=== PATIENT | female | born 1960 | race American Indian/Alaskan Native ===

== ENCOUNTER 2020-07-18 11:45 | Emergency (ER) | payer OTHER ==
[2020-07-18 12:51] VITALS: BP 173/93
--- NOTE | 2020-07-18 13:33 | Emergency Department Report ---
ED Extremity Problem HPI - General Chief complaint: Extremity Problem,Nontraumatic Stated complaint: LT LEG/ABDOMINAL PAIN Time Seen by Provider: 07/18/20 12:47 Source: patient Mode of arrival: Ambulatory Limitations: No Limitations - History of Present Illness Initial comments: 59-year-old female with a past medical history of hyperlipidemia and hypert ension presents to the ER today with complaints of numbness in her right lower extremity. She states that her symptoms started about a week ago and she feels like is getting worse. She states that her symptoms started initially in her right foot but has migrated up into her right buttocks and she feels like it is also in abdomen. She reports intermittent tingling to her right foot. She denies any leg weakness. She denies any abdominal pain. She denies any associated back pain. She denies any bowel or bladder incontinence, urinary retention or constipation. She denies any apparent leg swelling, bruising or erythema. She states that the numbness seems to be worse when she is at rest. She states that she mention it to her primary care doctor who told her it could be related to "her circulation" and recommended that she walks around more frequently but she states that does not seem to be going away.. She denies any history of PVD or DVT or PE or diabetes, lumbar thoracic spinal issues, or any other significant past history. MD Complaint: other (Numbness right lower extremity) -: week(s) (1) - Related Data Home Medications Medication Instructions Recorded Confirmed Last Taken Amlodipine Besylate/Valsartan 07/18/20 Unknown [Amlodipine-Valsartan 10-320 mg] AtorvaSTATin [Lipitor] 40 mg PO QHS 07/18/20 Unknown labetaloL [Labetalol 200mg TAB] 200 mg PO BID 07/18/20 07/18/20 Unknown Previous Rx's Medication Instructions Recorded Last Taken Type amLODIPine 10 mg PO DAILY #30 tablet 10/06/14 Unknown Rx Gabapentin 100 mg PO Q12HR #20 capsule 07/18/20 Unknown Rx Allergies Allergy/AdvReac Type Severity Reaction Status Date / Time No Known Allergies Allergy Unverified 10/04/14 00:39 ED Review of Systems ROS: Stated complaint: LT LEG/ABDOMINAL PAIN Other details as noted in HPI Comment: All other systems reviewed and negative Constitutional: denies: chills, fever Eyes: denies: eye pain, eye discharge, vision change ENT: denies: ear pain, throat pain Respiratory: denies: cough, shortness of breath, SOB with exertion, SOB at rest, wheezing Cardiovascular: denies: chest pain, palpitations, dyspnea on exertion, edema, syncope, paroxysmal nocturnal dyspnea Gastrointestinal: denies: abdominal pain, nausea, vomiting, diarrhea, constipation, hematemesis, melena, hematochezia Genitourinary: denies: urgency, dysuria, frequency, hematuria, discharge, abnormal menses, dyspareunia Musculoskeletal: denies: back pain, joint swelling, arthralgia Skin: denies: rash, lesions Neurological: numbness, paresthesias. denies: headache, weakness, abnormal gait Psychiatric: denies: anxiety, depression, auditory hallucinations, visual hallucinations, homicidal thoughts, suicidal thoughts Hematological/Lymphatic: denies: easy bleeding, easy bruising, swollen glands ED Past Medical Hx - Past Medical History Previous Medical History?: Yes Hx Hypertension: Yes Additional medical history: High cholesterol - Social History Smoking Status: Current Every Day Smoker - Medications Home Medications: Home Medications Medication Instructions Recorded Confirmed Last Taken Type amLODIPine 10 mg PO DAILY #30 tablet 10/06/14 Unknown Rx Amlodipine Besylate/Valsartan 07/18/20 Unknown History [Amlodipine-Valsartan 10-320 mg] AtorvaSTATin [Lipitor] 40 mg PO QHS 07/18/20 Unknown History Gabapentin 100 mg PO Q12HR #20 capsule 07/18/20 Unknown Rx labetaloL [Labetalol 200mg TAB] 200 mg PO BID 07/18/20 07/18/20 Unknown History ED Physical Exam - General Limitations: No Limitations General appearance: alert, in no apparent distress - Head Head exam: Present: atraumatic, normocephalic, normal inspection - Eye Eye exam: Present: normal appearance, PERRL, EOMI Pupils: Present: normal accommodation - ENT ENT exam: Present: normal exam, mucous membranes moist, TM's normal bilaterally - Neck Neck exam: Present: normal inspection, full ROM - Respiratory Respiratory exam: Present: normal lung sounds bilaterally. Absent: respiratory distress - Cardiovascular Cardiovascular Exam: Present: regular rate, normal rhythm, normal heart sounds - GI/Abdominal GI/Abdominal exam: Present: soft. Absent: distended, tenderness, guarding, rebo und - Extremities Exam Extremities exam: Present: normal inspection, full ROM, normal capillary refill. Absent: tenderness, pedal edema, joint swelling, calf tenderness - Back Exam Back exam: Present: normal inspection, full ROM. Absent: paraspinal tenderness, vertebral tenderness - Neurological Exam Neurological exam: Present: alert, oriented X3, CN II-XII intact, normal gait, reflexes normal. Absent: motor sensory deficit - Psychiatric Psychiatric exam: Present: normal affect, normal mood - Skin Skin exam: Present: intact ED Course Vital Signs 07/18/20 12:25 Temperature 98.9 F Pulse Rate 71 Respiratory 18 Rate Blood Pressure 173/93 O2 Sat by Pulse 98 Oximetry ED Medical Decision Making - Lab Data Result diagrams: 07/18/20 13:25 07/18/20 13:25 - Medical Decision Making 59-year-old female with a past medical history of hyperlipidemia and hypertension presents to the ER today with complaints of numbness in her right lower extremity. She states that her symptoms started about a week ago and she feels like is getting worse. She states that her symptoms started initially in her right foot but has migrated up into her right buttocks and she feels like it is also in abdomen. She reports intermittent tingling to her right foot. She denies any leg weakness. She denies any abdominal pain. She denies any associated back pain. She denies any bowel or bladder incontinence, urinary retention or constipation. She denies any apparent leg swelling, bruising or erythema. She states that the numbness seems to be worse when she is at rest. She states that she mention it to her primary care doctor who told her it could be related to "her circulation" and recommended that she walks around more frequently but she states that does not seem to be going away.. She denies any history of PVD or DVT or PE or diabetes, lumbar thoracic spinal issues, or any other significant past history. Labs reviewed. Patient LFTs are mildly elevated but she admits that she has a history of elevated LFTs. She currently has no complaints abdominal pain or any other GI complaints and she has a soft nontender abdomen. The remainder of her labs are unremarkable. Physical exam shows well-appearing female who is not in any acute distress. She is not toxic. She appears well-hydrated. She has a normal neurological exam with no deficits. She has a normal gait in the ED. Based on her history, physical exam, and current condition there is no concern for DVT, acute arterial occlusion, spinal cord compression, infection or any other significant emergent issues requiring further testing or imaging, admission or consults at this time. Informed patient that her symptoms could be related to herniated disc in her back, but also recommend that if her primary care doctor is concerned for her arterial circulation, recommend that she follows up with her PCP for arterial studies and also for referral to Ortho for an MRI of her back. Patient expressed understanding of instructions. Patient was stable at time of discharge. Critical care attestation.: If time is entered above; I have spent that time in minutes in the direct care of this critically ill patient, excluding procedure time. ED Disposition Clinical Impression: Paresthesia and pain of right extremity Disposition: DC- TO HOME OR SELFCARE Is pt being admited?: No Does the pt Need Aspirin: No Condition: Stable Instructions: Paresthesia, [id number] Additional Instructions: Take the gabapentin as prescribed. I recommend continued follow-up with your primary care doctor especially if your symptoms continues. You may need an MRI of your lower back to rule out disc herniation as a cause of your paresthesias to your leg, and you can also follow-up with her for arterial vascular studies, and also follow-up with her for continued follow-up on your liver functions. Return to the ER if your symptoms worsens in any way. Prescriptions: Gabapentin 100 mg PO Q12HR #20 capsule Referrals: THELMA DENISE DO [Primary Care Provider] - 3-5 Days Time of Disposition: 15:25
[2020-07-18 14:19] LABS: Basophils % (Auto) 0.8 % (0.0-1.8); Eosinophils % (Auto) 0.6 % (0.0-4.3); Hematocrit 36.1 % (30.3-42.9); Hemoglobin 11.9 gm/dl (10.1-14.3); Lymphocytes # (Auto) 1.8 K/mm3 (1.2-5.4); Mean Corpuscular HGB Conc 33 % (30-34); Mean Corpuscular Volume 104 fl (79-97); Monocytes # (Auto) 0.5 K/mm3 (0.0-0.8); Platelet Count 239 K/mm3 (140-440); Red Blood Count 3.49 M/mm3 (3.65-5.03); Red Cell Distribution Width 14.9 % (13.2-15.2)
[2020-07-18 14:30] LABS: Alanine Aminotransferase 98 units/L (7-56); Albumin 4.4 g/dL (3.9-5); Blood Urea Nitrogen 4 mg/dL (7-17); Calcium 9.2 mg/dL (8.4-10.2); Hemolysis Index 10
[2020-07-18 14:31] LABS: BUN/Creatinine Ratio 6
== END 2020-07-18 15:53 | disposition home or self-care (01) ==
LOC: ED 11:45
DX: R20.2 Paresthesia of skin (principal); M79.604 Pain in right leg; I10 Essential (primary) hypertension; F17.200 Nicotine dependence, unspecified, uncomplicated; Z79.899 Other long term (current) drug therapy
CPT/HCPCS: 36415; 80053; 83735; 85025

== ENCOUNTER 2021-01-21 10:04 | Outpatient (CLI) | payer OTHER ==
[2021-01-21 11:08] LABS: Blood Urea Nitrogen 9 mg/dL (7-17)
--- NOTE | 2021-01-21 13:59 | Cat Scan Report ---
CTA abdomen and pelvis with contrast INDICATION : VAS DISEASE 100 ml omni 350. Acute bilateral leg pain TECHNIQUE: Axial imaging performed through the abdomen and pelvis, with contrast bolus timing set to maximize opacification of the aorta. Bilateral lower extremity runoff was also performed. 3-plane M IP reformatted images were obtained. All CT scans at this location are performed using CT dose reduc tion for ALARA by means of automated exposure control. 100 mL of intravenous contrast administered. COMPARISON: None FINDINGS: Angiographic findings: There is multifocal atherosclerotic disease throughout the abdominal aorta and branch vessels which is generally mild except for the renal arteries which is more moderately advanc ed. There is 25-50% stenosis in the proximal segment of the right renal artery supplying the upper po le in this patient with at least 2 right renal arteries. At least 25-50% stenosis is also seen just b eyond the origin of the left renal artery as well. Moderate multifocal atherosclerotic disease extends into the common and external iliac arteries, with more severe disease involving bilateral internal iliac arteries. On the right, there is at least 50- 75 % focal stenosis at the junction of the common and external iliac artery segments with at least 75 % or greater stenosis in the proximal right external iliac artery. On the left, there is at least 50% stenosis in the proximal external iliac artery. Moderate to advanced multifocal atherosclerotic disease is present throughout the right lower extremi ty with up to roughly 50% stenosis in the MANAGER PE and at least 50% stenosis in the proximal SFA near the profunda origin. Severe disease is seen in the mid to distal segments where there is at least 50% or greater stenosis especially distally where there is greater than 75% stenosis near the level of the a bductor hiatus. The popliteal artery is patent and relatively unremarkable in appearance. Moderate mu ltifocal disease is seen in the trifurcate arteries with a 2 vessel runoff via the anterior and peron eal arteries. The posterior tibial artery is occluded shortly beyond its origin. Similarly, moderate to advanced multifocal atherosclerotic disease is present throughout the left low er extremity with at least 50-75% stenosis in the MANAGER PE followed by occlusion of the majority of the SF A to the level of the distal segment where blood flow is reconstituted via tiny collaterals arising f rom the profunda. Moderate multifocal disease extends into the cranial aspect of the popliteal artery . The popliteal is otherwise widely patent. The trifurcate arteries demonstrate advanced multifocal a therosclerotic disease and stenoses with a 2 vessel runoff via the anterior and peroneal arteries. Th e posterior tibial artery is occluded at its origin. Non-angiographic findings: Lungs/bones: Lung bases are clear. There are degenerative changes throughout the spine, pelvis, and both lower extremities with no acute osseous abnormality identified. Abdomen/pelvis: There is severe hepatic steatosis. The gallbladder, spleen, pancreas, adrenals, kidn eys, and proximal GI tract appear unremarkable. Urinary bladder and reproductive organs are unremarkable with no pelvic free fluid. No acute colonic abnormality identified. No significant incidental soft tissue findings in either lower extremity. IMPRESSION: 1. Advanced multifocal atherosclerotic disease and multifocal stenoses/levels of occlusion as outlin ed above. Notably, the majority of the left SFA is occluded and there are bilateral 2 vessel runoffs with occlusion of both posterior tibial arteries. 2. Severe hepatic steatosis, otherwise no significant incidental findings. Signer Name: Martin Hinton MD Signed: 01/21/2021 1:55 PM Workstation Name: [email or web address]
== END 2021-01-21 10:05 | disposition home or self-care (01) ==
LOC: CT 10:04
PROVIDERS: ATTEND Internal Medicine
DX: K76.0 Fatty (change of) liver, not elsewhere classified (principal); I73.9 Peripheral vascular disease, unspecified; I70.0 Atherosclerosis of aorta; I70.1 Atherosclerosis of renal artery; I70.202 Unspecified atherosclerosis of native arteries of extremities, left leg
CPT/HCPCS: 36415; 75635; 82565; 84520; Q9967

== ENCOUNTER 2021-02-18 16:57 | Emergency (ER) | payer OTHER ==
--- NOTE | 2021-02-18 17:48 | Emergency Department Report ---
ED General Adult HPI - General Chief complaint: Medical Clearance Stated complaint: hYPOTENSION Time Seen by Provider: 02/18/21 17:14 Source: patient Mode of arrival: Stretcher Limitations: No Limitations - History of Present Illness Initial comments: The patient presents to the emergency department chief complaint of hypotension. Patient states she was at her doctor's office who is Dr. Jo. Patient states while at the office she was mildly lightheaded and when he took her blood pressure it was low. Per EMS her blood pressure was 84/60. On my examination the patient's blood pressure is 106/63. Patient has not received any fluids. Patient denies any chest pain, shortness breath, abdominal pain, headache, lightheadedness. -: Sudden Severity scale (0 -10): 0 Consistency: now resolved Improves with: none Worsens with: none Associated Symptoms: denies other symptoms Treatments Prior to Arrival: none - Related Data Home Medications Medication Instructions Recorded Confirmed Last Taken Amlodipine Besylate/Valsartan 07/18/20 Unknown [Amlodipine-Valsartan 10-320 mg] AtorvaSTATin [Lipitor] 40 mg PO QHS 07/18/20 Unknown labetaloL [Labetalol 200mg TAB] 200 mg PO BID 07/18/20 07/18/20 Unknown Previous Rx's Medication Instructions Recorded Last Taken Type amLODIPine 10 mg PO DAILY #30 tablet 10/06/14 Unknown Rx Gabapentin 100 mg PO Q12HR #20 capsule 07/18/20 Unknown Rx Allergies Allergy/AdvReac Type Severity Reaction Status Date / Time No Known Allergies Allergy Unverified 10/04/14 00:39 ED Review of Systems ROS: Stated complaint: hYPOTENSION Other details as noted in HPI Comment: All other systems reviewed and negative Constitutional: denies: chills, fever Eyes: denies: eye pain, eye discharge, vision change ENT: denies: ear pain, throat pain Respiratory: denies: cough, shortness of breath, wheezing Cardiovascular: denies: chest pain, palpitations Endocrine: no symptoms reported Gastrointestinal: denies: abdominal pain, nausea, diarrhea Genitourinary: denies: urgency, dysuria, discharge Musculoskeletal: denies: back pain, joint swelling, arthralgia Skin: denies: rash, lesions Neurological: denies: headache, weakness, paresthesias Psychiatric: denies: anxiety, depression Hematological/Lymphatic: denies: easy bleeding, easy bruising ED Past Medical Hx - Past Medical History Hx Hypertension: Yes Additional medical history: High cholesterol - Social History Smoking Status: Unknown if ever smoked - Medications Home Medications: Home Medications Medication Instructions Recorded Confirmed Last Taken Type amLODIPine 10 mg PO DAILY #30 tablet 10/06/14 Unknown Rx Amlodipine Besylate/Valsartan 07/18/20 Unknown History [Amlodipine-Valsartan 10-320 mg] AtorvaSTATin [Lipitor] 40 mg PO QHS 07/18/20 Unknown History Gabapentin 100 mg PO Q12HR #20 capsule 07/18/20 Unknown Rx labetaloL [Labetalol 200mg TAB] 200 mg PO BID 07/18/20 07/18/20 Unknown History ED Physical Exam - General Limitations: No Limitations General appearance: alert, in no apparent distress - Head Head exam: Present: atraumatic, normocephalic - Eye Eye exam: Present: normal appearance, PERRL, EOMI - ENT ENT exam: Present: mucous membranes moist - Neck Neck exam: Present: normal inspection - Respiratory Respiratory exam: Present: normal lung sounds bilaterally. Absent: respiratory distress - Cardiovascular Cardiovascular Exam: Present: regular rate, normal rhythm. Absent: systolic murmur, diastolic murmur, rubs, gallop - GI/Abdominal GI/Abdominal exam: Present: soft, normal bowel sounds. Absent: distended, tenderness - Extremities Exam Extremities exam: Present: normal inspection - Back Exam Back exam: Present: normal inspection - Neurological Exam Neurological exam: Present: alert, oriented X3, CN II-XII intact. Absent: motor sensory deficit - Psychiatric Psychiatric exam: Present: normal affect, normal mood - Skin Skin exam: Present: warm, dry, intact, normal color. Absent: rash ED Course Vital Signs 02/18/21 02/18/21 02/18/21 17:04 17:19 17:30 Temperature 98.6 F 98.6 F Pulse Rate 86 88 70 Respiratory 18 16 9 L Rate Blood Pressure 104/70 93/64 Blood Pressure 92/72 [Left] O2 Sat by Pulse 100 99 99 Oximetry 02/18/21 02/18/21 02/18/21 17:46 18:00 18:16 Temperature Pulse Rate 73 70 Respiratory 13 14 11 L Rate Blood Pressure 93/64 99/66 99/66 Blood Pressure [Left] O2 Sat by Pulse 100 98 99 Oximetry ED Medical Decision Making - Lab Data Result diagrams: 02/18/21 17:34 02/18/21 17:34 Lab Results 02/18/21 02/18/21 Range/Units 17:34 17:34 WBC 4.2 L (4.5-11.0) K/mm3 RBC 3.24 L (3.65-5.03) M/mm3 Hgb 11.3 (10.1-14.3) gm/dl Hct 34.8 (30.3-42.9) % MCV 108 H (79-97) fl MCH 35 H (28-32) pg MCHC 33 (30-34) % RDW 14.6 (13.2-15.2) % Plt Count 265 (140-440) K/mm3 [place] % (Auto) Aerial Hurricane Hunter Baso % (Auto) Aerial Hurricane Hunter Add Manual Diff Complete Total Counted 100 Seg Neuts % (Manual) 51.0 (40.0-70.0) % Lymphocytes % (Manual) 31.0 (13.4-35.0) % Monocytes % (Manual) 17.0 H (0.0-7.3) % Eosinophils % (Manual) 1.0 (0.0-4.3) % Nucleated RBC % Not Reportable Seg Neutrophils # Man 2.1 (1.8-7.7) K/mm3 Band Neutrophils # 0.0 K/mm3 Lymphocytes # (Manual) 1.3 (1.2-5.4) K/mm3 Abs React Lymphs (Man) 0.0 K/mm3 Monocytes # (Manual) 0.7 (0.0-0.8) K/mm3 Eosinophils # (Manual) 0.0 (0.0-0.4) K/mm3 Basophils # (Manual) 0.0 (0.0-0.1) K/mm3 Metamyelocytes # 0.0 K/mm3 Myelocytes # 0.0 K/mm3 Promyelocytes # 0.0 K/mm3 Blast Cells # 0.0 K/mm3 WBC Morphology Not Reportable Hypersegmented Neuts Not Reportable Hyposegmented Neuts Not Reportable Hypogranular Neuts Not Reportable Smudge Cells Not Reportable Toxic Granulation Not Reportable Toxic Vacuolation Not Reportable Dohle Bodies Not Reportable Pelger-Huet Anomaly Not Reportable Farhan Rods Not Reportable Platelet Estimate Not Reportable Clumped Platelets Not Reportable Plt Clumps, EDTA Not Reportable Large Platelets Not Reportable Giant Platelets Not Reportable Platelet Satelliting Not Reportable Plt Morphology Comment Not Reportable RBC Morphology Normal Dimorphic RBCs Not Reportable Polychromasia Not Reportable Hypochromasia Not Reportable Poikilocytosis Not Reportable Anisocytosis Not Reportable Microcytosis Not Reportable Macrocytosis Not Reportable Spherocytes Not Reportable Pappenheimer Bodies Not Reportable Sickle Cells Not Reportable Target Cells Not Reportable Tear Drop Cells Not Reportable Ovalocytes Not Reportable Helmet Cells Not Reportable [place] Bodies Not Reportable [place] Rings Not Reportable [place] Cells Not Reportable Bite Cells Not Reportable Crenated Cell Not Reportable Elliptocytes Not Reportable Acanthocytes (Spur) Not Reportable Rouleaux Not Reportable Hemoglobin C Crystals Not Reportable Schistocytes Not Reportable Malaria parasites Not Reportable Bean Bodies Not Reportable Hem Pathologist Commnt No Sodium 136 L (137-145) mmol/L Potassium 5.1 H (3.6-5.0) mmol/L Chloride 99.7 (98-107) mmol/L Carbon Dioxide 20 L (22-30) mmol/L Anion Gap 21 mmol/L BUN 11 (7-17) mg/dL Creatinine 1.0 (0.6-1.2) mg/dL Estimated GFR > 60 ml/min BUN/Creatinine Ratio 11 % Glucose 102 H (65-100) mg/dL Calcium 9.4 (8.4-10.2) mg/dL - EKG Data -: EKG Interpreted by Me EKG shows normal: sinus rhythm Rate: normal - Radiology Data Radiology results: report reviewed - Medical Decision Making Discussed results with patient Critical care attestation.: If time is entered above; I have spent that time in minutes in the direct care o f this critically ill patient, excluding procedure time. ED Disposition Clinical Impression: Transient hypotension Disposition: 01 HOME / SELF CARE / HOMELESS Is pt being admited?: No Does the pt Need Aspirin: No Condition: Stable Instructions: Hypotension Additional Instructions: Return if worse Referrals: NATALIE JO MD [Primary Care Provider] - 3-5 Days Time of Disposition: 21:00
[2021-02-18 18:02] LABS: BUN/Creatinine Ratio 11; Blood Urea Nitrogen 11 mg/dL (7-17); Calcium 9.4 mg/dL (8.4-10.2); Hemolysis Index 57
--- NOTE | 2021-02-18 18:05 | XRay Report ---
CHEST 1 VIEW 02/18/2021 5:33 PM INDICATION / CLINICAL INFORMATION: hypotension. COMPARISON: None. FINDINGS: SUPPORT DEVICES: None. HEART / MEDIASTINUM: No significant abnormality. LUNGS / PLEURA: No significant pulmonary or pleural abnormality. No pneumothorax. ADDITIONAL FINDINGS: No significant additional findings. IMPRESSION: No acute abnormality. Signer Name: Maury Lan MD Signed: 02/18/2021 6:01 PM Workstation Name: [id number]
[2021-02-18 18:26] VITALS: BP 99/66
[2021-02-18 18:49] LABS: Hematocrit 34.8 % (30.3-42.9); Hemoglobin 11.3 gm/dl (10.1-14.3); Mean Corpuscular HGB Conc 33 % (30-34); Mean Corpuscular Volume 108 fl (79-97); Platelet Count 265 K/mm3 (140-440); Red Blood Count 3.24 M/mm3 (3.65-5.03); Red Cell Distribution Width 14.6 % (13.2-15.2)
[2021-02-18 20:33] LABS: RBC Morphology Normal; Total Cells Counted 100
[2021-02-18 21:13] LABS: Bacteria,Urine 3+ /HPF (Negative); Bilirubin,Urine NEG (Negative); Blood,Urine SM (Negative); Color,Urine Amber (Yellow); Mucus,Urine 3+ /HPF
--- NOTE | 2021-02-19 12:13 | Electrocardiograph Report ---
[facility] Test Date: 2021-02-18 Test Time: 17:45:28 Pat Name: MANAS RAO Department: Room: Gender: F [employer]: DELLA : 1960 Requested By: YONY SAVAGE Order Number: [id number] Reading MD: Franky Beckford Measurements Intervals [place] Rate: 73 P: 36 [place]: 162 QRS: 22 QRSD: 69 T: 93 QT: 396 QTc: 438 Interpretive Statements Sinus rhythm Nonspecific T abnrm, anterolateral leads No previous ECG available for comparison Electronically Signed On 02-19-2021 12:12:57 EST by Franky Beckford
== END 2021-02-18 22:09 | disposition home or self-care (01) ==
LOC: ED 16:57
DX: I95.9 Hypotension, unspecified (principal); I10 Essential (primary) hypertension; E78.00 Pure hypercholesterolemia, unspecified
CPT/HCPCS: 36415; 71045; 80048; 81001; 85007; 85025; 93005; 99284

== ENCOUNTER 2021-02-23 09:56 | Emergency (ER) | payer OTHER ==
--- NOTE | 2021-02-23 11:21 | Emergency Department Report ---
HPI - General Chief Complaint: Weakness Time Seen by Provider: 02/23/21 10:50 - HPI HPI: 60-year-old -[place]one[place] female presents to the emergency department with a complaint of a few weeks of having dizziness/lightheadedness, generalized weakness, and complaining of "numbness" from head to toe that she describes as being "inside." Patient thinks that this started ever since she had the CT angiography study of her abdomen and pelvis at the beginning of January, about 1 month ago. The patient was seen here 4 days ago after she was sent in by her PCP for some hypotension when she was being seen in their office for a regular checkup. She denies any fever, headache, vision change, slurred speech, chest pain, shortness of breath, abdominal pain. Over the past 1 to 2 weeks the patient is also been having increased nausea with vomiting, especially when she eats or drinks anything. Also, the patient's says that she has been having an increase in the dizziness or lightheadedness, or appears wobbly, when she stands up to move around the house. ED Past Medical Hx - Past Medical History Hx Hypertension: Yes Additional medical history: High cholesterol - Social History Smoking Status: Unknown if ever smoked - Medications Home Medications: Home Medications Medication Instructions Recorded Confirmed Last Taken Type amLODIPine 10 mg PO DAILY #30 tablet 10/06/14 02/23/21 Unknown Rx Amlodipine Besylate/Valsartan 07/18/20 Unknown History [Amlodipine-Valsartan 10-320 mg] AtorvaSTATin [Lipitor] 40 mg PO QHS 07/18/20 02/23/21 Unknown History labetaloL [Labetalol 200mg TAB] 200 mg PO BID 07/18/20 02/23/21 Unknown History Ondansetron [Zofran Odt] 4 mg PO Q8HR PRN #15 tab.rapdis 02/23/21 Unknown Rx ED Review of Systems ROS: Stated complaint: WHOLE BODY NUMB Other details as noted in HPI Comment: All other systems reviewed and negative Constitutional: weakness. denies: chills, fever Eyes: denies: eye pain, vision change ENT: denies: ear pain, throat pain Respiratory: denies: cough, shortness of breath Cardiovascular: denies: chest pain, palpitations Gastrointestinal: nausea, vomiting. denies: abdominal pain Genitourinary: denies: dysuria, discharge Musculoskeletal: denies: back pain, arthralgia Skin: denies: rash, lesions Neurological: numbness, paresthesias, other (Dizziness/lightheadedness). denies: headache Physical Exam - Physical Exam Vital Signs: Vital Signs 02/23/21 09:59 Temperature 97.8 F Pulse Rate 112 H Respiratory 18 Rate Blood Pressure 160/115 O2 Sat by Pulse 100 Oximetry Physical Exam: GENERAL: The patient is well-developed well-nourished. HENT: Normocephalic. Atraumatic. Patient has moist mucous membranes. EYES: Extraocular motions are intact. Pupils equal reactive to light bilaterally. No nystagmus. NECK: Supple. Trachea is midline. CHEST/LUNGS: Clear to auscultation. There is no respiratory distress noted. HEART/CARDIOVASCULAR: Regular. There is mild tachycardia. There is no murmur. ABDOMEN: Abdomen is soft, nontender. Patient has normal bowel sounds. SKIN: Skin is warm and dry. NEURO: The patient is awake, alert, and oriented. The patient is cooperative. The patient has no focal neurologic deficits. Normal speech. Cranial nerves II through XII grossly intact. No pronator drift or dysmetria. No facial asymmetry. MUSCULOSKELETAL: There is no tenderness or deformity. There is no limitation range of motion. Muscle strength 5 out of 5 for upper and lower extremities bilaterally. ED Course Vital Signs 02/23/21 09:59 Temperature 97.8 F Pulse Rate 112 H Respiratory 18 Rate Blood Pressure 160/115 O2 Sat by Pulse 100 Oximetry ED Medical Decision Making - Lab Data Result diagrams: 02/23/21 10:49 02/23/21 10:49 Lab Results 02/23/21 02/23/21 02/23/21 Range/Units 10:49 10:49 10:49 WBC 3.8 L (4.5-11.0) K/mm3 RBC 3.81 (3.65-5.03) M/mm3 Hgb 13.2 (10.1-14.3) gm/dl Hct 40.6 (30.3-42.9) % MCV 107 H (79-97) fl MCH 35 H (28-32) pg MCHC 33 (30-34) % RDW 14.5 (13.2-15.2) % Plt Count 283 (140-440) K/mm3 Lymph % (Auto) 28.9 (13.4-35.0) % [place] % (Auto) 11.4 H (0.0-7.3) % Eos % (Auto) 0.8 (0.0-4.3) % Baso % (Auto) 0.5 (0.0-1.8) % Lymph # (Auto) 1.1 L (1.2-5.4) K/mm3 [place] # (Auto) 0.4 (0.0-0.8) K/mm3 Eos # (Auto) 0.0 (0.0-0.4) K/mm3 Baso # (Auto) 0.0 (0.0-0.1) K/mm3 Seg Neutrophils % 58.4 (40.0-70.0) % Seg Neutrophils # 2.2 (1.8-7.7) K/mm3 Sodium 133 L (137-145) mmol/L Potassium 3.9 D (3.6-5.0) mmol/L Chloride 93.9 L (98-107) mmol/L Carbon Dioxide 15 L (22-30) mmol/L Anion Gap 28 mmol/L BUN 12 (7-17) mg/dL Creatinine 0.7 (0.6-1.2) mg/dL Estimated GFR > 60 ml/min BUN/Creatinine Ratio 17 % Glucose 88 (65-100) mg/dL Calcium 9.5 (8.4-10.2) mg/dL Magnesium 2.00 (1.7-2.3) mg/dL Total Bilirubin 0.50 (0.1-1.2) mg/dL AST 63 H (5-40) units/L ALT 64 H (7-56) units/L Alkaline Phosphatase 75 (35-129) units/L Troponin T (0.00-0.029) ng/mL Total Protein 6.9 (6.3-8.2) g/dL Albumin 4.1 (3.9-5) g/dL Albumin/Globulin Ratio 1.5 % TSH 1.660 (0.270-4.200) mlU/mL 02/23/21 Range/Units 10:49 WBC (4.5-11.0) K/mm3 RBC (3.65-5.03) M/mm3 Hgb (10.1-14.3) gm/dl Hct (30.3-42.9) % MCV (79-97) fl MCH (28-32) pg MCHC (30-34) % RDW (13.2-15.2) % Plt Count (140-440) K/mm3 Lymph % (Auto) (13.4-35.0) % [place] % (Auto) (0.0-7.3) % Eos % (Auto) (0.0-4.3) % Baso % (Auto) (0.0-1.8) % Lymph # (Auto) (1.2-5.4) K/mm3 [place] # (Auto) (0.0-0.8) K/mm3 Eos # (Auto) (0.0-0.4) K/mm3 Baso # (Auto) (0.0-0.1) K/mm3 Seg Neutrophils % (40.0-70.0) % Seg Neutrophils # (1.8-7.7) K/mm3 Sodium (137-145) mmol/L Potassium (3.6-5.0) mmol/L Chloride (98-107) mmol/L Carbon Dioxide (22-30) mmol/L Anion Gap mmol/L BUN (7-17) mg/dL Creatinine (0.6-1.2) mg/dL Estimated GFR ml/min BUN/Creatinine Ratio % Glucose (65-100) mg/dL Calcium (8.4-10.2) mg/dL Magnesium (1.7-2.3) mg/dL Total Bilirubin (0.1-1.2) mg/dL AST (5-40) units/L ALT (7-56) units/L Alkaline Phosphatase (35-129) units/L Troponin T < 0.010 (0.00-0.029) ng/mL Total Protein (6.3-8.2) g/dL Albumin (3.9-5) g/dL Albumin/Globulin Ratio % TSH (0.270-4.200) mlU/mL - EKG Data -: EKG Interpreted by Mn EKG shows normal: sinus rhythm, axis, intervals, QRS complexes (Q waves to the septal leads), ST-T waves Rate: normal - EKG Data When compared to previous EKG there are: no significant change Interpretation: unchanged when compared t (02/18/21) - Radiology Data Radiology results: report reviewed CT head without contrast INDICATION : Dizziness, Lightheaded, weakness. T ECHNIQUE: Axial imaging performed from the skull apex through the skull base without the use of contrast. All CT scans at this location are performed using CT dose reduction for ALARA by means of automated exposure control. COMPARISON: None FINDINGS: Parenchyma: No acute intracranial hemorrhage or parenchymal abnormality. Ventricles: Ventricles are normal in size and appear symmetric. Soft tissues: Soft tissues including the orbits appear normal. Bones: No acute osseous abnormality. Sinuses: Sinuses and mastoid air cells are clear. IMPRESSION: No evidence of acute intracranial abnormality. If neurologic symptoms persist or additional evaluation is clinically indicated, consider MRI. - Medical Decision Making This patient presents to the emergency department with a complaint of a few weeks of lightheadedness dizziness, and some recent nausea with vomiting. Patient says that she has some type of generalized sensation that she describes as a "numbness inside." She and her say that sometimes she feels a little off balance after she stands up from the seated position. On examination patient does not have any focal, motor or sensory deficits and her cranial nerves are intact. CT scan of the head without contrast does not show any hemorrhage, large vessel occlusion, or any other acute process. EKG does not show any morphology consistent with ST elevation myocardial infarction. Patient's labs are remarkable for some mild transaminitis, and the patient has a mild anion gap elevation and a bicarb level of 15 that is most likely consistent with dehydration ketosis. Patient was given a liter of IV fluid resuscitation and a dose of IV Zofran. I discussed with the patient that she must avoid alcohol and Tylenol due to the elevated liver enzymes. She will be given a referral for [facility]. Patient's orthostatics were not completely positive as she did not have hypotension, but the systolic blood pressure did drop about 15 points from the seated to standing position. This patient will be signed out to my colleague, Dr. Caraballo, to reevaluate the patient. She will need a oral challenge, she will need to be ambulated around the emergency department to make sure that she feels stable, and the patient has been given a dose of IV antihypertensive medication. The patient is able to pass the oral challenge and ambulate without any increased dizziness or instability, then she can be discharged home to follow-up with primary care and gastroenterology. Otherwise he will assist with disposition. Critical Care Time: No Critical care attestation.: If time is entered above; I have spent that time in minutes in the direct care of this critically ill patient, excluding procedure time. ED Disposition Clinical Impression: HTN (hypertension), Dizziness, Nausea & vomiting, Dehydration, Transaminitis Disposition: HOME / SELF CARE / HOMELESS Is pt being admited?: No Condition: Stable Instructions: Nausea and Vomiting, Adult, Dizziness, Hypertension, Adult, Dehydration, Adult, Hypertension (ED) Additional Instructions: Please follow-up with your primary care physician in the next few days. Take all medications as prescribed. Increase your oral rehydration. Try to stay with foods that are high in salt and caffeinated products. Keep a blood pressure log. Your labs showed some elevated liver enzymes. Because of this, please avoid any alcohol or Tylenol/acetaminophen use. I am giving you a referral for [facility]. Return to the emergency department with any worsening of your symptoms, new or concerning symptoms not addressed during this current emergency department visit, or with any acute distress. Prescriptions: Ondansetron [Zofran Odt] 4 mg PO Q8HR PRN #15 tab.rapdis PRN Reason: Nausea Referrals: MELI MALDONADO [Other] - 2-3 Days PCP, Your [Other] - 2-3 Days [facility] [Provider Group] - 3-5 Days
[2021-02-23 11:35] LABS: Basophils % (Auto) 0.5 % (0.0-1.8); Eosinophils % (Auto) 0.8 % (0.0-4.3); Hematocrit 40.6 % (30.3-42.9); Hemoglobin 13.2 gm/dl (10.1-14.3); Lymphocytes # (Auto) 1.1 K/mm3 (1.2-5.4); Lymphocytes % (Auto) 28.9 % (13.4-35.0); Mean Corpuscular HGB Conc 33 % (30-34); Mean Corpuscular Volume 107 fl (79-97); Monocytes # (Auto) 0.4 K/mm3 (0.0-0.8); Monocytes % (Auto) 11.4 % (0.0-7.3); Platelet Count 283 K/mm3 (140-440); Red Blood Count 3.81 M/mm3 (3.65-5.03); Red Cell Distribution Width 14.5 % (13.2-15.2)
[2021-02-23 11:52] LABS: Alanine Aminotransferase 64 units/L (7-56); Albumin 4.1 g/dL (3.9-5); Blood Urea Nitrogen 12 mg/dL (7-17); Calcium 9.5 mg/dL (8.4-10.2); Hemolysis Index 3
[2021-02-23 11:58] LABS: BUN/Creatinine Ratio 17
[2021-02-23] MEDS ORDERED: SODIUM CHLORIDE 0.9% 1000 ML 1,000 ML IV ONE (12:27)
--- NOTE | 2021-02-23 12:30 | Cat Scan Report ---
CT head without contrast INDICATION : Dizziness, Lightheaded, weakness. TECHNIQUE: Axial imaging performed from the skull apex through the skull base without the use of con trast. All CT scans at this location are performed using CT dose reduction for ALARA by means of aut omated exposure control. COMPARISON: None FINDINGS: Parenchyma: No acute intracranial hemorrhage or parenchymal abnormality. Ventricles: Ventricles are normal in size and appear symmetric. Soft tissues: Soft tissues including the orbits appear normal. Bones: No acute osseous abnormality. Sinuses: Sinuses and mastoid air cells are clear. IMPRESSION: No evidence of acute intracranial abnormality. If neurologic symptoms persist or additional evaluatio n is clinically indicated, consider MRI. Signer Name: Rah Reece MD Signed: 02/23/2021 12:25 PM Workstation Name: [id number]
[2021-02-23] MEDS ORDERED: ONDANSETRON 4 MG/2 ML INJ IV ONE (12:31)
[2021-02-23] MEDS ORDERED: diazePAM 10 MG/2 ML SYRINGE IV ONE (18:01)
[2021-02-23 21:30] VITALS: BP 135/87
--- NOTE | 2021-02-25 09:08 | Electrocardiograph Report ---
[facility], [place] Test Date: 2021-02-23 Test Time: 15:00:09 Pat Name: MANAS RAO Department: Room: Gender: F [employer]her [employer]: NALINI : 1960 Requested By: RADHA ARAGON Order Number: [id number] Reading MD: Mir Salas Measurements Intervals [place] Rate: 88 P: 64 DC: 137 QRS: 23 QRSD: 63 T: 79 QT: 376 QTc: 455 Interpretive Statements Sinus rhythm Probable left atrial enlargement Consider anteroseptal infarct Compared to ECG 02/18/2021 17:45:28 Myocardial infarct finding now present Electronically Signed On 02-25-2021 9:07:46 EST by Mir Salas
== END 2021-02-23 21:28 | disposition home or self-care (01) ==
LOC: ED 09:56
DX: I10 Essential (primary) hypertension (principal); R42 Dizziness and giddiness; R11.2 Nausea with vomiting, unspecified; E86.0 Dehydration; R74.01 Elevation of levels of liver transaminase levels
CPT/HCPCS: 36415; 70450; 80053; 83735; 84443; 84484; 85025; 93005; 96361; 96374; 96375; 99284; J2405; J3360; J3490; J7030; Q0162

== ENCOUNTER 2021-08-18 14:50 | Outpatient (CLI) | payer OTHER | END 2021-08-18 14:51 | disposition home or self-care (01) | LOC: SPVWC 14:50 | PROVIDERS: ATTEND Family Medicine | DX: Z12.31 Encounter for screening mammogram for malignant neoplasm of breast (principal) | CPT/HCPCS: 77067 ==